=== PATIENT | male | born 1980 | race Hispanic/Latino ===

== ENCOUNTER 2020-09-16 05:43 | Day surgery (SDC) | payer MEDICARE ==
[~2020-09-16] VITALS: Ht 162.6 cm; Wt 99.8 kg
[~2020-09-16 05:43] MED LIST: ALPR2TAB7 PO; CLON0.1T PO; INSU100I26 SQ; INSU100I3 SQ; LABE100T5 PO
[2020-09-16 06:19] VITALS: BP 129/82
[2020-09-16] MEDS ORDERED: SODIUM CHLORIDE 0.9% 1000ML 1,000 ML IV ONE (06:19)
[2020-09-16 06:47] LABS: POTASSIUM 3.9 mmol/L (3.5-5.1)
[2020-09-16 07:08] LABS: CREATININE 9.3 mg/dL (0.5-1.5)
[2020-09-16] MEDS ORDERED: MIDAZOLAM HCL 1 MG/ML 2ML VIAL ONE (07:40)
[2020-09-16] MEDS ORDERED: PROPOFOL 10 MG/ML 20ML VIAL IV ONE (07:40)
[2020-09-16 08:30] VITALS: BP 99/49
[2020-09-16 08:40] VITALS: BP 111/55
[2020-09-16 08:45] VITALS: BP 113/56
[2020-09-16 08:53] VITALS: BP 104/54
== END 2020-09-16 09:00 | disposition home or self-care (01) ==
LOC: DAH 05:43
PROVIDERS: ATTEND Internal Medicine Gastroenterology
DX: Z12.11 Encounter for screening for malignant neoplasm of colon (principal); I12.0 Hypertensive chronic kidney disease with stage 5 chronic kidney disease or end stage renal disease; E11.22 Type 2 diabetes mellitus with diabetic chronic kidney disease; N18.6 End stage renal disease; N28.9 Disorder of kidney and ureter, unspecified; Z79.4 Long term (current) use of insulin; Z79.899 Other long term (current) drug therapy; Z20.828 Contact with and (suspected) exposure to other viral communicable diseases
CPT/HCPCS: 36415 ×2; 80048; 82948 ×2; A4215; A4221; A4222; A4223; A4606; A4620; A4657; A4663; C9803; G0121; J2250; J2704; J7030; U0003

== ENCOUNTER 2022-12-23 13:35 | Emergency (ER) | payer MEDICARE ==
[~2022-12-23] VITALS: Ht 162.6 cm; Wt 99.3 kg
[~2022-12-23 13:35] MED LIST changes: -LABE100T5 PO; +LABE100T7 PO
[2022-12-23 14:08] VITALS: BP 146/84
[2022-12-23 14:38] LABS: BASOPHILS % (AUTO) 0.3 % (0.0-5.0); EOSINOPHILS % (AUTO) 0.4 % (0.0-8.0); HEMATOCRIT 39.2 % (42-54); LYMPHOCYTES % (AUTO) 8.1 % (21.0-51.0); MEAN CORPUSCULAR HEMOGLOBIN 33.8 pg (27.0-33.0); MEAN CORPUSCULAR HGB CONC 33.9 g/dL (32.0-36.0); MEAN CORPUSCULAR VOLUME 99.7 fL (79-99); MONOCYTES % (AUTO) 6.6 % (3.0-13.0); NEUTROPHILS % (AUTO) 84.2 % (40.0-77.0); PLATELET COUNT (AUTO) 201 K/uL (130-400); RED BLOOD CELL COUNT(AUTO) 3.93 MIL/uL (4.50-6.20); RED CELL DISTRIBUTION WIDTH 14.3 % (11.0-15.5); WHITE BLOOD COUNT (AUTO) 13.7 K/uL (4.8-10.8)
[2022-12-23 15:04] LABS: ALBUMIN 4.4 g/dL (3.5-5.0); POTASSIUM 5.8 mmol/L (3.5-5.1); TOTAL PROTEIN, SERUM 9.2 g/dL (6.0-8.3)
[2022-12-23 15:34] LABS: INR 0.93 (0.85-1.15); PROTHROMBIN TIME 9.9 SEC (9.6-11.6)
== END 2022-12-23 17:42 | disposition home or self-care (01) ==
LOC: EDH 13:35
DX: R20.2 Paresthesia of skin (principal); I12.0 Hypertensive chronic kidney disease with stage 5 chronic kidney disease or end stage renal disease; E11.22 Type 2 diabetes mellitus with diabetic chronic kidney disease; N18.6 End stage renal disease; Z79.4 Long term (current) use of insulin; Z79.899 Other long term (current) drug therapy; Z88.0 Allergy status to penicillin; Z99.2 Dependence on renal dialysis
CPT/HCPCS: 36415; 70450; 80053; 84484; 85025; 85610; 93005

== ENCOUNTER 2024-11-19 06:50 | Day surgery (SDC) | payer MEDICARE ==
[2024-11-13 11:48] VITALS: BP 136/69; RESP 18; TEMP 98.6
[2024-11-13 11:49] LABS: BASOPHILS # (AUTO) 0.03 K/uL (0.00-0.20); BASOPHILS % (AUTO) 0.4 % (0.0-5.0); EOSINOPHILS # (AUTO) 0.12 K/uL (0.00-0.70); EOSINOPHILS % (AUTO) 1.8 % (0.0-8.0); HEMATOCRIT 37.9 % (42-54); IMMATURE GRANULOCYTE ABSOLUTE 0.02 K/uL (0-1); LYMPHOCYTES # (AUTO) 1.4 K/uL (1.0-4.8); LYMPHOCYTES % (AUTO) 20.6 % (21.0-51.0); MEAN CORPUSCULAR HEMOGLOBIN 34.2 pg (27.0-33.0); MEAN CORPUSCULAR HGB CONC 32.7 g/dL (32.0-36.0); MEAN CORPUSCULAR VOLUME 104.4 fL (79-99); MONOCYTES # (AUTO) 0.7 K/uL (0.1-1.0); MONOCYTES % (AUTO) 10.4 % (3.0-13.0); NEUTROPHILS # (AUTO) 4.5 K/uL (1.8-7.7); NEUTROPHILS % (AUTO) 66.5 % (40.0-77.0); PLATELET COUNT (AUTO) 164 K/uL (130-400); RED BLOOD CELL COUNT(AUTO) 3.63 MIL/uL (4.50-6.20); RED CELL DISTRIBUTION WIDTH 14.6 % (11.0-15.5); WHITE BLOOD COUNT (AUTO) 6.8 K/uL (4.8-10.8)
[2024-11-13 12:03] LABS: INR <= 0.93 (0.85-1.15); PROTHROMBIN TIME 9.9 SEC (9.6-11.6)
[2024-11-13 12:04] LABS: PARTIAL THROMBOPLASTIN TIME 21.7 SEC (26.3-35.5)
[2024-11-13 12:07] LABS: ALBUMIN 3.9 g/dL (3.5-5.0); BILIRUBIN,TOTAL 0.3 mg/dL (0.2-1.0); POTASSIUM 5.3 mmol/L (3.5-5.1); TOTAL PROTEIN, SERUM 8.5 g/dL (6.0-8.3)
[2024-11-13 12:09] LABS: CREATININE 9.9 mg/dL (0.5-1.3)
[2024-11-19] VITALS (16 sets, daily range): BP systolic 86–139; BP diastolic 45–79; PULSE 67–87; RESP 14–18; TEMP 96.9–97.5
[~2024-11-19] VITALS: Ht 162.6 cm; Wt 91.0 kg
[~2024-11-19 06:50] MED LIST changes: -CLON0.1T PO; +INSREG SQ; -INSU100I3 SQ; -LABE100T7 PO; +LANT10005 PO; +LORA10TA7 PO; +METO-408 PO; +RENVELA PO
[2024-11-19 07:38] LABS: POTASSIUM 5.3 mmol/L (3.5-5.1)
[2024-11-19 07:49] LABS: CREATININE 14.9 mg/dL (0.5-1.3)
[2024-11-19] MEDS ORDERED: HEParin-NS 1,000 UNIT/500 ML 500 ML IV ONE (07:53)
[2024-11-19] MEDS: 0.9% NACL 500ML IV.SOLN 500 ML IV ONE (08:02)
[2024-11-19] MEDS ORDERED: FENTanyl CITRate PF 50 MCG/1 ML 2ML VIAL ONE (08:23)
[2024-11-19] MEDS ORDERED: proPOFol 10 MG/ML 20ML VIAL IV ONE ×2 (08:23→09:53)
[2024-11-19] MEDS ORDERED: LIDOCAINE PF 100MG/5ML (2%) SYRINGE 5ML ONE (08:23)
[2024-11-19] MEDS ORDERED: MIDAZOLAM HCL 1 MG/ML 2ML VIAL ONE (08:23)
[2024-11-19] MEDS ORDERED: rocuRONium bROMide 10MG/1ML 5ML VL ONE (08:23)
[2024-11-19] MEDS: CLINDAMYCIN IVPB 600MG/50ML 50 ML IV ONE (08:35)
[2024-11-19] MEDS: HEParin 5,000 UNIT VIAL IRRIG ONE (08:53)
[2024-11-19] MEDS ORDERED: PROTamine SULFate 10 MG/ML 25ML VIAL IV ONE (10:15)
--- NOTE | 2024-11-19 10:46 | OP ---
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 Once general endotracheal anesthesia is achieved patient's left upper extremity is prepped and draped in sterile fashion. I then proceeded to create a transverse incision over top of the antecubital fossa at the level of the arteriovenous anastomosis and proceeded to dissect around the proximal portion of the fistula just distal to the anastomosis and obtained proximal control. I then proceeded to create a longitudinal incision with a 15 blade at the upper arm at the distal fistula past the aneurysms. Proceeded to dissect through the skin and subcutaneous tissue and obtain distal control. Once we had proximal and distal control I then proceeded to use the Pickwick 35 vascular load to divide the fistula proximally and distally. I then created a longitudinal incision over top of the aneurysms and then proceeded to use Bovie cautery to excise the aneurysm completely clipping it every branch from any collaterals that we identified. We then proceeded to obtain hemostasis at the surgical bed. I then proceeded to close his large incision where the aneurysm used to lay using 3-0 Vicryl running fashion. And leaving just the 2 incisions where we had exposure of the inflow and the outflow. I then proceeded to use a curved C tunneler to tunnel from the proximal to the distal incision laterally from our previous surgical bed and then through here proceeded to tunnel and 6 mm straight graft making sure that the dotted line stayed up. I then proceeded to excise the staple on the arterial inflow. And created into an anastomosis on the arterial side and to end with 6-0 Prolene that was end to end and on the venous side as well that was end to side and with 6-0 Prolene as well. Once both anastomosis were created we then confirmed that there was a good thrill throughout the graft. No bleeding was seen. All incisions were closed in 2 layers. With 3-0 Vicryl and then 4-0 Monocryl. The incision at the antecubital fossa on the upper arm we applied Dermabond over top. In the longitudinal incision over top of where the aneurysms used to be we applied a Prevena dressing over top. Patient tolerated the procedure well all counts were correct x2 at the end of the procedure. FERNANDO VALERO MD Nov 19, 2024 10:46
[2024-11-19] MEDS ORDERED: ePHEDrine SULFate 50 MG/ML AMPULE ONE (10:47)
--- NOTE | 2024-11-19 13:00 | NUR ---
FULL AND COMPLETE DISCHARGE INSTRUCTIONS GIVEN BOTH VERBALLY AND IN WRITING TO PATIENT AND FAMILY. ALL QUESTIONS ANSWERED. PIV REMOVED WITH CATHETER TIP INTACT. DENIES CURRENT PAIN OR NAUSEA. VOICED UNDERSTANDING TO SURGICAL INCISION INSTRUCTIONS AND FOLLOW UP. W/C TO POV WITH FAMILY TO HOME. WOUND VAC CLEAN AND DRY. SUCTION AT -125. BATTERY CHARGED. FULL INSTRUCTIONS ON WOUND VAC USE AND PAMPHLET PROVIDED.
== END 2024-11-19 13:00 | disposition home or self-care (01) ==
LOC: DAH 06:50
PROVIDERS: ATTEND Student in an Organized Health Care Education/Training Program
DX: I77.0 Arteriovenous fistula, acquired (principal); N18.6 End stage renal disease; E11.22 Type 2 diabetes mellitus with diabetic chronic kidney disease; I12.0 Hypertensive chronic kidney disease with stage 5 chronic kidney disease or end stage renal disease; Z79.899 Other long term (current) drug therapy; Z90.5 Acquired absence of kidney; Z98.890 Other specified postprocedural states
CPT/HCPCS: 80053; 85025; 85610; 85730; 86850 ×2; 86900 ×2; 86901 ×2; 36415 ×2; 35190; 80048; 82948 ×2; 88304; A6260; A4663; J7040 ×2; J3010; J3490 ×3; J2003; J2250; J2704 ×2; J1644 ×2; A4649 ×3; C1713 ×3; C1768; A4215; A4222; A4221; A4216; J2720; A4223 ×2

== ENCOUNTER → 2025-01-03 | Outpatient (CLI) | payer MEDICARE ==
--- NOTE | 2025-01-09 12:22 | HMCSR ---
APPROVED REPORT EXAM: Two-dimensional and M-mode echocardiogram with Doppler and color Doppler. INDICATION ICD: Cardiac murmur, unspecified R01.1 2D Dimensions RVDd3.8 cmLVEF(%)67.2 (>50%)LVED Vol(simp.)134.0 mL IVSd1.5 (0.7-1.1cm)FS(%)37 %LVES Vol(simp.)64.0 mL LVDd3.7 (3.8-5.6cm)LA (2D)3.7 (1.6-4.0cm)LVEF(%, simp.)52 % PWd1.1 (0.7-1.1cm)Ao Root(2D)3.4 (2.0-3.7cm)LA ESV INDEX (BP)22.76 mL/m2 IVSs1.6 cmLVOT diam2.6 (1.8-2.4cm) LVDs2.3 (2.5-4.0cm) PWs1.7 cm M-Mode Dimensions EPSS1.0 cm LA (MM)4.1 (1.6-4.0cm) Ao Root(MM)3.0 (2.0-3.7cm) Aortic Valve AoV Vmax1.9 m/Richelle Peak GR15.0 mmHgLVOT Vmax1.1 m/s AoV VTI0.4 mAo Mean GR9.1 mmHgLVOT VTI0.20 m ARI (VMAX)2.8 cm2AVA (VTI) 2.8 cm2 Mitral Valve MV E Vmax56.7 cm/sDECEL Cbni120 ms MV A Vmax68.6 cm/sP 1/2 T49 ms E/A ratio0.8MVA (PHT)4.5 cm2 TDI E/E' Medial5.8 Pulmonary Valve PV Vmax1.0 m/s Tricuspid Valve TR Vmax2.1 m/sRAP (EST) 3 ewDpWXLQ12.1 mmHg TR Peak GR17.1 mmHg Left Ventricle Left ventricular cavity size is normal. There is normal LV segmental wall motion. Mild concentric lef t ventricular hypertrophy. LVEF is 50-55%. Indeterminate diastolic dysfunction. Right Ventricle The right ventricle is normal size. The right ventricular systolic function is normal. Atria The left atrium size is normal. The right atrium size is normal. Aortic Valve The aortic valve is mildly thickened but opens well. Calcification noted on the non coronary cusp farooq flet and left coronary cusp leaflet. No aortic regurgitation is present. There is no aortic valvular stenosis. Mitral Valve The mitral valve is normal in structure. Small mobile echogenicity mass vs artifact seen attached to anterior mitral valve leaflet annulus. There is no mitral valve regurgitation noted. There is no mitr al valve stenosis. Tricuspid Valve The tricuspid valve is normal in structure. There is trace tricuspid valve regurgitation noted. Pulmonic Valve The pulmonary valve is normal in structure. There is no pulmonic valvular regurgitation. Great Vessels The aortic root is normal in size. The IVC is normal in size and collapses >50% with inspiration. Pericardium There is no pericardial effusion. Other Information Quality : Adequate Conclusion LVEF is 50-55%. Mild concentric left ventricular hypertrophy. The aortic valve is mildly thickened but opens well. Calcification noted on the non coronary cusp farooq flet and left coronary cusp leaflet.
== END | disposition home or self-care (01) ==
LOC: RAH 13:38
PROVIDERS: ATTEND Internal Medicine Cardiovascular Disease
DX: R01.1 Cardiac murmur, unspecified (principal)
CPT/HCPCS: 93306